=== PATIENT | female | born 1995 | race Caucasian/White ===

== ENCOUNTER 2017-04-24 17:34 | Observation (INO) | payer SELFPAY ==
[~2017-04-24] VITALS: Ht 162.6 cm; Wt 53.1 kg
[~2017-04-24 17:34] MED LIST: ZITH250T PO; ZOFR4TAB3 SL
[2017-04-24 17:42] VITALS: BP 113/75; PULSE 98; RESP 18; TEMP 98.7; O2SAT 100
[2017-04-24] MEDS ORDERED: SODIUM CHLORIDE 0.9% FLUSH 10 ML FLUSH IV FLUSH PRN (18:30)
--- NOTE | 2017-04-24 18:30 | PD ---
HPI Chief Complaint: Abdominal Pain Time Seen by Provider: 18:14 Travel History International Travel<30 days: No Contact w/Intl Traveler<30days: No Traveled to known affect area: No History of Present Illness HPI The patient was seen and examined in the presence of the nurse. This patient complains of abdominal pain. Location is right lower quadrant. Duration is 18 hours. Severity is moderate. She did not eat today. Has decreased appetite. Denies vomiting or diarrhea or fever. She has had scant vaginal discharge but denies sexual active the last 6 months. No alleviating factors. Exacerbating factors. PFSH Past Medical History Medical History: Denies Significant Hx Diminished Hearing: No Immunizations Current: Yes Influenza Vaccination: No ?: Not Past Surgical History Surgical History: No Previous Surgery Social History Alcohol Use: Yes (occas) Tobacco Use: No Substance Use: No Allergies-Medications (Allergen,Severity, Reaction): Coded Allergies: No Known Allergies (Unverified Adverse Reaction, Unknown, 04/24/17) Reported Meds & Prescriptions Reported Meds & Active Scripts Active Review of Systems General / Constitutional: No: Fever Eyes: No: Visual changes HENT: No: Headaches Cardiovascular: No: Chest Pain or Discomfort Respiratory: No: Shortness of Breath Gastrointestinal: Positive: Abdominal Pain, Loss of Appetite Genitourinary: Positive: Discharge, No: Dysuria Musculoskeletal: No: Pain Skin: No Rash Neurologic: No: Weakness Psychiatric: No: Depression Endocrine: No: Polydipsia Hematologic/Lymphatic: No: Easy Bruising Physical Exam Narrative GENERAL: Well-nourished, well-developed patient with abdominal pain . SKIN: Focused skin assessment reveals no rash and nodules. Skin is Warm and dry. HEAD: Atraumatic. Normocephalic. EYES: Pupils equal and round. No scleral icterus. No injection or drainage. ENT: No nasal bleeding or discharge. Mucous membranes pink and moist. NECK: Trachea midline. No JVD. CARDIOVASCULAR: Regular rate and rhythm. No murmur appreciated. RESPIRATORY: No accessory muscle use. Clear to auscultation. Breath sounds equal bilaterally. GASTROINTESTINAL: Abdomen soft, non-tender, nondistended. Hepatic and splenic margins not palpable. MUSCULOSKELETAL: No obvious deformities. No clubbing. No cyanosis. No edema. NEUROLOGICAL: Awake and alert. No obvious cranial nerve deficits. Motor grossly within normal limits. Normal speech. PSYCHIATRIC: Appropriate mood and affect; insight and judgment normal. Pelvic: No cervical motion tenderness. No blood in the vault. There is a scant white discharge. There is right sided adnexal area tenderness Data Data Last Documented VS Vital Signs Date Time Temp Pulse Resp B/P (MAP) Pulse Ox O2 Delivery O2 Flow Rate FiO2 04/24/17 19:22 99 16 107/67 (80) 98 Room Air 04/24/17 17:42 98.7 Orders Orders Basic Metabolic Panel (Bmp) (04/24/17 18:24) Complete Blood Count With Diff (04/24/17:24) Prothrombin Time / Inr (Pt) (04/24/17:24) Act Partial Throm Time (Ptt) (04/24/17:24) Urinalysis - C+S If Indicated (04/24/17:24) Ct Abd/Pel W Iv Contrast(Rout) (04/24/17 18:24) Iv Access Insert/Monitor (04/24/17 18:24) NPO (04/24/17 18:24) Sodium Chloride 0.9% Flush (Ns Flush) (04/24/17 18:30) Ed Urine Pregnancytest Poc (04/24/17 18:24) Gc And Chlamydia Pcr (04/24/17 18:24) Wet Prep Profile (04/24/17 18:24) Urine Culture (04/24/17 18:27) Iohexol 350 Inj (Omnipaque 350 Inj) (04/24/17 19:05) Ampicillin-Sulbactam Inj (Unasyn Inj) (04/24/17 19:45) Ns 1000ml Wide Open 2000 Ml/Hr (04/24/17 19:45) Admit Order (Ed Use Only) (04/24/17 19:37) Labs Laboratory Tests Test 04/24/17 18:20 04/24/17 18:27 White Blood Count 14.6 TH/MM3 Red Blood Count 4.57 MIL/MM3 Hemoglobin 12.8 GM/DL Hematocrit 38.6 % Mean Corpuscular Volume 84.4 FL Mean Corpuscular Hemoglobin 28.0 PG Mean Corpuscular Hemoglobin Concent 33.2 % Red Cell Distribution Width 12.6 % Platelet Count 193 TH/MM3 Mean Platelet Volume 8.9 FL Neutrophils (%) (Auto) 83.8 % Lymphocytes (%) (Auto) 5.4 % Monocytes (%) (Auto) 9.1 % Eosinophils (%) (Auto) 0.3 % Basophils (%) (Auto) 1.4 % Neutrophils # (Auto) 12.3 TH/MM3 Lymphocytes # (Auto) 0.8 TH/MM3 Monocytes # (Auto) 1.3 TH/MM3 Eosinophils # (Auto) 0.0 TH/MM3 Basophils # (Auto) 0.2 TH/MM3 CBC Comment AUTO DIFF Differential Comment AUTO DIFF CONFIRMED Prothrombin Time 10.9 SEC Prothromb Time International Ratio 1.0 RATIO Activated Partial Thromboplast Time 29.2 SEC Blood Urea Nitrogen 8 MG/DL Creatinine 0.67 MG/DL Random Glucose 84 MG/DL Calcium Level 8.6 MG/DL Sodium Level 137 MEQ/L Potassium Level 3.7 MEQ/L Chloride Level 104 MEQ/L Carbon Dioxide Level 24.0 MEQ/L Anion Gap 9 MEQ/L Estimat Glomerular Filtration Rate 111 ML/MIN Urine Color YELLOW Urine Turbidity CLEAR Urine pH 7.0 Urine Specific [place] 1.022 Urine Protein NEG mg/dL Urine Glucose (UA) NEG mg/dL Urine Ketones 15 mg/dL Urine Occult Blood TRACE Urine Nitrite NEG Urine Bilirubin NEG Urine Leukocyte Esterase TRACE Urine RBC 0-3 /hpf Urine WBC 9-14 /hpf Urine Squamous Epithelial Cells 6-8 /hpf Urine Bacteria RARE /hpf Microscopic Urinalysis Comment CULTURE INDICATED Clue Cells (Wet Prep) NONE SEEN Vaginal Trichomonas (Wet Prep) NONE SEEN Vaginal Yeast (Wet Prep) NONE SEEN MDM Medical Decision Making Medical Screen Exam Complete: Yes Emergency Medical Condition: Yes Medical Record Reviewed: Yes Differential Diagnosis Appendicitis, PID, ectopic Narrative Course I have reviewed the patient's electronic medical record. Urine is negative IV placed CBC shows leukocytosis of 14.6 thousand Metabolic profile is normal Coagulation studies are normal Urinalysis shows minor pyuria CT of abdomen and pelvis with IV contrast done to evaluate for appendicitis GC and chlamydia sent Wet prep is negative CT scan is consistent with appendicitis. There is a fluid-filled dilated appendix with induration of fat around it Her clinical presentation is very consistent with appendicitis I gave her dose of Unasyn and a liter of saline IV Discussed with general surgeon Dr. Servin who will admit for appendectomy Diagnosis Primary Impression: Acute appendicitis Qualified Codes: K35.3 - Acute appendicitis with localized peritonitis Admitting Information Admitting Physician Requests: Admit Darvin Ryder MD Apr 24, 2017 18:30
[2017-04-24 18:38] LABS: BLOOD, URINE TRACE (NEG); GLUCOSE,URINE NEG (NEG); KETONE, URINE 15 mg/dL (NEG); NITRITE,URINE NEG (NEG)
[2017-04-24 18:38] LABS: AUTOMATED NEUTROPHIL # 12.3 TH/MM3 (1.8-7.7); BASOPHIL # 0.2 TH/MM3 (0-0.2); BASOPHIL % 1.4 % (0.0-2.0); EOSINOPHIL % 0.3 % (0.0-4.0); HEMATOCRIT 38.6 % (35.0-46.0); LYMPH % 5.4 % (9.0-44.0); LYMPHOCYTE # 0.8 TH/MM3 (1.0-4.8); MEAN CELL VOLUME 84.4 FL (80.0-100.0); MEAN CORPUSCULAR HGB CONC 33.2 % (32.0-36.0); MONO % 9.1 % (0.0-8.0); NEUT % 83.8 % (16.0-70.0); PLATELET COUNT 193 TH/MM3 (150-450); RED BLOOD COUNT 4.57 MIL/MM3 (4.00-5.30); RED CELL DISTRIBUTION WIDTH 12.6 % (11.6-17.2); WHITE BLOOD COUNT 14.6 TH/MM3 (4.0-11.0)
[2017-04-24 18:47] LABS: URINE COLOR YELLOW (YELLW/STRAW)
[2017-04-24 18:48] LABS: BACTERIA, URINE RARE /hpf; COMMENT (UR) CULTURE INDICATED; CULTURE IF INDICATED CULTURE INDICATED; RBC, URINE 0-3 /hpf (0-3)
[2017-04-24 18:50] LABS: HEMO FLAGS AUTO DIFF; POTASSIUM 3.7 MEQ/L (3.5-5.1)
[2017-04-24 18:56] LABS: APTT (PATIENT) 29.2 SEC (24.3-30.1); PROTHROMBIN TIME - PATIENT 10.9 SEC (9.8-11.6)
[2017-04-24] MEDS ORDERED: IOHEXOL 350 MG/ML 10 ML VIAL (for RAD DIAG) IVCONTRAST ONE (19:05)
[2017-04-24 19:22] VITALS: BP 107/67; PULSE 99; RESP 16; O2SAT 98
--- NOTE | 2017-04-24 19:22 | RADRPT ---
EXAM DATE/TIME: 04/24/2017 18:59 [facility] COMPARISON: No previous studies available for comparison. INDICATIONS : Right lower quad pain. IV CONTRAST: 96 cc Omnipaque 350 (iohexol) IV ORAL CONTRAST: No oral contrast ingested. RADIATION DOSE: 4.71 CTDIvol (mGy) MEDICAL HISTORY : None SURGICAL HISTORY : None. ENCOUNTER: Initial ACUITY: 1 day PAIN SCALE: 10/10 LOCATION: Right lower quadrant TECHNIQUE: Volumetric scanning of the abdomen and pelvis was performed. Using automated exposure control and ad justment of the mA and/or kV according to patient size, radiation dose was kept as low as reasonably achievable to obtain optimal diagnostic quality images. DICOM format image data is available electro nically for review and comparison. FINDINGS: LOWER LUNGS: The visualized lower lungs are clear. LIVER: Homogeneous density without lesion. There is no dilation of the biliary tree. No calcified gallston es. SPLEEN: Normal size without lesion. PANCREAS: Within normal limits. KIDNEYS: Normal in size and shape. There is no mass, stone or hydronephrosis. ADRENAL GLANDS: Within normal limits. VASCULAR: There is no aortic aneurysm. BOWEL/MESENTERY: Fecaliths are seen at the base and tip of the appendix. The appendix is fluid-filled and mildly diste nded, measures up to 12 mm. The fat adjacent to the appendix appears slightly indurated. ABDOMINAL WALL: Within normal limits. RETROPERITONEUM: There is no lymphadenopathy. BLADDER: Questionable mild, diffuse bladder wall thickening as can be seen in the setting of cystitis. Please correlate clinically and with urine analysis. REPRODUCTIVE: 18 mm right ovarian cyst with mildly enhancing, redundant portillo typical of a collapsing cyst. No free fluid. INGUINAL: There is no lymphadenopathy or hernia. MUSCULOSKELETAL: Within normal limits for patient age. CONCLUSION: 1. The CT would support mild or early appendicitis in the proper clinical setting. 2. 18 mm right ovarian cyst that appears to be collapsing. 3. Also possible cystitis. Gilberto Leblanc MD on April 24, 2017 at 19:16 Board Certified Radiologist. This report was verified electronically.
[2017-04-24 19:30] LABS: SCAN/DIFF AUTO DIFF CONFIRMED
[2017-04-24] MEDS ORDERED: AMPICILLIN-SULBACTAM INJ 1,500 MG in SODIUM CHLORIDE 0.9% INJ 100 ML IV ONE (19:45)
[2017-04-24] MEDS ORDERED: SODIUM CHLOR 0.9% 1000 ML INJ 1,000 ML IV ONE (19:45)
[2017-04-24] MEDS ORDERED: ONDANSETRON HCL 4 MG/2 ML VIAL IVP ONE (20:45)
[2017-04-24] MEDS: LACTATED RINGER'S 1000 ML IV PRN ×2 (20:45→22:12)
[2017-04-24] MEDS ORDERED: BUPIVACAINE/EPINEPHRINE 0.25% PF 30 ML VIAL ONE (20:46)
[2017-04-24] MEDS ORDERED: SUGAMMADEX SODIUM 200 MG/2 ML VIAL IV PUSH ONE ×2 (20:53)
[2017-04-24] MEDS ORDERED: PROPOFOL 200 MG/20 ML AMP ONE (20:54)
[2017-04-24] MEDS ORDERED: KETOROLAC TROMETHAMINE 30 MG/ML (IVP) VIAL ONE (20:54)
[2017-04-24] MEDS ORDERED: ROCURONIUM INJ 50 MG/5 ML VIAL ONE (20:55)
[2017-04-24] MEDS ORDERED: ACETAMINOPHEN 1000 MG/100 ML 100 ML IV ONE (21:17)
[2017-04-24] MEDS ORDERED: SODIUM CHLORID 0.9% 500 ML IV PRN (21:45)
[2017-04-24] MEDS ORDERED: METOPROLOL TARTRATE 25 MG TAB PO PRN (21:45)
[2017-04-24] MEDS ORDERED: CHLORHEXIDINE GLUCONATE 2 % 1 PACK (2 CLOTHS) TOPICAL PRN (21:45)
[2017-04-24] MEDS ORDERED: POVIDONE IODINE 5% (ANTISEPSIS KIT) 4 APPLICATIONS EACH NARE PRN (21:45)
[2017-04-24] MEDS ORDERED: INSULIN HUMAN REGULAR 1,000 UNITS/10 ML VIAL SQ PRN (21:45)
[2017-04-24] MEDS ORDERED: SODIUM CHLOR 0.9% 1000 ML INJ 1,000 ML IV SCH (21:51)
--- NOTE | 2017-04-24 21:51 | HHI.PR ---
cc: Philip Servin MD Immediate Post Op Note Procedure Date: Apr 24, 2017 Pre Op Diagnosis: Acute appendicitis Post Op Diagnosis: Same, without perforation Surgeon: Philip Servin Slip Filler(s): Kacy Healy CST Procedure: Laparoscopic Appendectomy Complications: None Specimen(s) removed: Appendix to pathology Estimated blood loss: 5 ml Anesthesia: General Drains: None IVF (950 ml) Patient to: PACU Patient Condition: Good Date/Time of Procedure: SEE SURGICAL CARE RECORD Philip Servin MD Apr 24, 2017 21:51
[2017-04-24] MEDS ORDERED: NORC5TAB PO (21:54)
[2017-04-24] MEDS ORDERED: Post-op Orders (for Pharmacy) MISC XX ONE (22:00)
[2017-04-24] MEDS ORDERED: NALOXONE HCL 0.4 MG/ML AMP IV PUSH PRN (22:00)
[2017-04-24] MEDS ORDERED: KETOROLAC TROMETHAMINE 30 MG/ML (IVP) VIAL IVP PRN (22:00)
[2017-04-24] MEDS ORDERED: SODIUM CHLORIDE 0.9% FLUSH 5 ML FLUSH IVF PRN (22:00)
[2017-04-24] MEDS ORDERED: ACETAMINOPHEN/HYDROcodone 325 MG/5 MG TAB PO PRN ×2 (22:00)
[2017-04-24] MEDS ORDERED: MORPHINE SULFATE 2 MG/ML INJ IV PRN (22:00)
[2017-04-24] MEDS ORDERED: ONDANSETRON HCL 4 MG/2 ML VIAL IV PUSH PRN (22:00)
[2017-04-24] MEDS ORDERED: diphenhydrAMINE HCL 25 MG CAP PO PRN (22:00)
[2017-04-24] MEDS ORDERED: SULF1TAB PO (22:09)
[2017-04-24] MEDS ORDERED: PROMETHAZINE INJ 25 MG/ML VIAL ONE (22:45)
[2017-04-24 23:44] VITALS: BP 104/66; PULSE 94; RESP 16; TEMP 98.2; O2SAT 100
[2017-04-25 04:00] VITALS: BP 110/71; TEMP 98.6
--- NOTE | 2017-04-25 04:49 | MH ---
cc: BETTY HINKLE M.D. DATE OF ADMISSION: 04/24/2017 REASON FOR ADMISSION Acute appendicitis HISTORY OF PRESENT ILLNESS The patient is a 21-year-old female who had an 18-hour history of pain in the right lower quadrant. She had anorexia on the day of admission, denies any emesis, diarrhea or fever. She did report having nausea. She has no exacerbating or alleviating factors. PAST MEDICAL HISTORY: She has no other significant medical history. PAST SURGICAL HISTORY: She has no previous surgery. SOCIAL HISTORY: She uses alcohol occasionally. She does not smoke or use other substances. ALLERGIES: She has no known allergies. REVIEW OF SYSTEMS 10-point review of systems is negative except for GI with abdominal pain and loss of appetite and was a small amount of vaginal discharge. The remaining systems are all negative. PHYSICAL EXAMINATION: Physical exam reveals a thin female who is uncomfortable. Vitals: BP 107/67, pulse 99, respirations 16, 98% saturation on room air, temperature 99.8. HEAD, EYES, EARS, NOSE, AND THROAT: Sclerae anicteric. Chest: Clear to auscultation. Cardiac exam: Reveals regular rate and rhythm. Abdomen: Soft with tenderness in the right lower quadrant. There is some guarding. Extremities: The patient has some tattoos on the right forearm. Pulses are intact. Neurologic: Exam is nonfocal. LABORATORY FINDINGS WBCs 14.6, platelets 193,000. Chemistries are within normal limits with potassium 3.7, BUN and creatinine are 8 and 0.67. Coags normal with INR of 1.0. Urinalysis has some WBCs and culture is indicated. IMAGING STUDIES CT of the abdomen and pelvis demonstrates small 18 mm right ovarian cyst with dilated appendix consistent with early acute appendicitis. ASSESSMENT Acute appendicitis without perforation. PLAN Laparoscopic appendectomy, possible open appendectomy. I have discussed risks of surgery with the patient including but not limited to bleeding, infection, abscess formation requiring drainage, leakage with fistula formation, and small risk of long-term adhesions. Long-term adhesions with the risk of bowel obstruction. I have discussed remedies, consequences, alternatives, convalescence; she vocalizes understanding and agrees to proceed. MD BRANDON Hoffmann/MARNIE /10:02 PM /4:45 AM
--- NOTE | 2017-04-25 05:41 | MP ---
cc: BETTY SERVIN M.D. DATE OF SURGERY: 04/24/2017 PROCEDURE Laparoscopic appendectomy. PREOPERATIVE DIAGNOSIS Acute appendicitis. POSTOPERATIVE DIAGNOSIS Acute appendicitis without perforation. ANESTHESIA General endotracheal SURGEON Joao Servin MD. ESTIMATED BLOOD LOSS Less than 5 mL FLUIDS: 950 mL crystalloid COMPLICATIONS None. DRAINS None. SPECIMEN Appendix to pathology. PROCEDURE IN DETAIL The patient was taken to the operating room and placed on the operating table in the supine position. After an adequate level of general endotracheal anesthesia was achieved the abdomen was prepped and draped in usual fashion. Time-out was taken confirming the correct patient, site and procedure to be performed. Skin and subcutaneous tissue was infiltrated with local anesthetic and an incision was made in the umbilicus and carried through the fascia sharply. The peritoneal cavity was directly visualized. A 12 mm balloon trocar was inserted and the balloon inflated. The abdomen was insufflated. The patient was placed in Trendelenburg position. A 30 degrees 5 mm lens was inserted and then followed by placement of two 5 mm trocars with the first in the right lower quadrant and the second in the suprapubic region. Both entered the abdominal cavity under direct vision uneventfully. The appendix was then mobilized off of the cecum and the mesoappendix divided in a bloodless plane utilizing the harmonic scalpel. The appendix was also attached to the retroperitoneal tissues and this was dissected off with the harmonic scalpel as well. When the appendix had been dissected to the base, a 0-PDS Endoloop was slipped over the appendix and cinched down at the base. The appendix was then divided 1 cm distal to this and placed into an EndoCatch device. While observing via the right lower quadrant 5-mm trocar site, the appendix was removed via the umbilical port site and passed off the table. The 5 mm lens was once again placed into the umbilical port and all irrigation aspirated from the abdominal cavity. A small amount of cloudy fluid was seen in the pelvis and this was rinsed and irrigated, and then aspirated. After the abdomen was clean and dry and the appendiceal stump and mesoappendix were seen to be hemostatic and dry, insufflation was discontinued. The 5-mm trocars were removed under direct vision with no bleeding noted from the trocar sites. The laparoscope and umbilical port were removed. The fascia was closed in the umbilicus with 0 Vicryl suture in both a simple interrupted and [id number] fashion. The remaining local anesthetic was injected into each of the trocar sites. The skin was closed at each of the trocar sites with 4-0 Vicryl in an interrupted buried fashion. The trocar sites were dressed with Steri-Strips. The patient was extubated and taken back to the recovery room in stable condition. She tolerated the procedure well. Betty Servin MD [facility]/MARNIE /10:06 PM /5:41 AM
[2017-04-25 07:50] VITALS: BP 110/71; PULSE 83; RESP 20; TEMP 97.3; O2SAT 100
[2017-04-25 08:00] VITALS: BP 150/69; PULSE 67; RESP 16; TEMP 96.1; O2SAT 98
[2017-04-25] MEDS ORDERED: SODIUM CHLORIDE 0.9% FLUSH 5 ML FLUSH IVF SCH (09:00)
[2017-04-25 10:20] LABS: CHLAMYDIA PCR NOT DETECTED (NOT DETECT); NEISSERIA PCR NOT DETECTED (NOT DETECT)
[2017-04-25 11:50] VITALS: BP 102/59; PULSE 91; RESP 20; TEMP 97.4; O2SAT 98
[2017-04-25 11:54] VITALS: RESP 18
== END 2017-04-25 14:50 | disposition home or self-care (01) ==
LOC: PHED 17:34 → INTOOBSV 19:47 → PHEDA 19:47 → PH3A 23:23
PROVIDERS: ADMIT Surgery Trauma Surgery; ATTEND Surgery Trauma Surgery
DX: K35.80 Unspecified acute appendicitis (principal); R82.99 Other abnormal findings in urine; R63.0 Anorexia; R11.0 Nausea
CPT/HCPCS: 00840; 44970; 74177; 80048; 81001; 84703; 85025; 85610; 85730; 87086; 87210; 87491; 87591; 88304; 94150; 99285; G0378; J0131; J0295; J1885; J2405; J2550; J3010; J7030; J7120; Q9967

== ENCOUNTER 2017-09-03 22:56 | Emergency (ER) | payer OTHER ==
[~2017-09-03] VITALS: Ht 162.6 cm; Wt 54.0 kg
[~2017-09-03 22:56] MED LIST changes: +NORC5TAB PO; +SULF1TAB PO; -ZITH250T PO; -ZOFR4TAB3 SL
[2017-09-03 23:24] VITALS: BP 117/71; PULSE 84; RESP 18; TEMP 98.4; O2SAT 100
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
[2017-09-04] MEDS ORDERED: IOHEXOL 350 MG/ML 10 ML VIAL (for RAD DIAG) IVCONTRAST ONE (00:42)
[2017-09-04 00:50] LABS: AUTOMATED NEUTROPHIL # 10.1 TH/MM3 (1.8-7.7); BASOPHIL % 0.4 % (0.0-2.0); EOSINOPHIL % 0.1 % (0.0-4.0); HEMATOCRIT 41.6 % (35.0-46.0); HEMOGLOBIN 13.7 GM/DL (11.6-15.3); LYMPH % 10.1 % (9.0-44.0); LYMPHOCYTE # 1.2 TH/MM3 (1.0-4.8); MEAN CELL VOLUME 84.7 FL (80.0-100.0); MEAN CORPUSCULAR HEMOGLOBIN 27.9 PG (27.0-34.0); MEAN PLATELET VOLUME 8.8 FL (7.0-11.0); MONO % 7.1 % (0.0-8.0); MONOCYTE # 0.9 TH/MM3 (0-0.9); NEUT % 82.3 % (16.0-70.0); PLATELET COUNT 294 TH/MM3 (150-450); RED BLOOD COUNT 4.91 MIL/MM3 (4.00-5.30); RED CELL DISTRIBUTION WIDTH 12.8 % (11.6-17.2); WHITE BLOOD COUNT 12.2 TH/MM3 (4.0-11.0)
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
[2017-09-04 01:09] LABS: BICARBONATE 27.8 MEQ/L (21.0-32.0); CALCIUM 9.1 MG/DL (8.5-10.1); CREATININE 0.92 MG/DL (0.50-1.00)
== END 2017-09-04 01:23 | disposition home or self-care (01) ==
LOC: NEPD 22:56
DX: R10.31 Right lower quadrant pain (principal)
CPT/HCPCS: 74177; 80048; 84703; 85025; 99284; Q9967